=== PATIENT | male | born 1950 | race Caucasian/White ===

== ENCOUNTER → 2022-06-08 10:36 | Outpatient (BNVA) | payer MEDICARE, SELFPAY | PROVIDERS: Family Provider Family Medicine; PCP Family Medicine; Visit Provider Family Medicine | DX: E78.2 Mixed hyperlipidemia (principal); Z12.5 Encounter for screening for malignant neoplasm of prostate; G47.00 Insomnia, unspecified; J30.9 Allergic rhinitis, unspecified | CPT/HCPCS: 80053; 80061; 85025; G0103 ==

== ENCOUNTER → 2023-03-14 13:02 | Outpatient (BNVA) | payer OTHER, SELFPAY | PROVIDERS: Family Provider Family Medicine; PCP Family Medicine; Visit Provider Registered Nurse Neonatal Intensive Care | DX: J02.9 Acute pharyngitis, unspecified (principal); Z23 Encounter for immunization | CPT/HCPCS: 87071; 87880 ==

== ENCOUNTER → 2023-07-29 12:15 | Outpatient (BNVA) | payer OTHER, SELFPAY | PROVIDERS: Family Provider Family Medicine; PCP Family Medicine; Visit Provider Family Medicine | DX: Z13.6 Encounter for screening for cardiovascular disorders (principal); Z12.5 Encounter for screening for malignant neoplasm of prostate | CPT/HCPCS: 80053; 80061; 85025; G0103 ==

== ENCOUNTER → 2024-06-26 14:08 | Outpatient (BNVA) | payer OTHER, SELFPAY | PROVIDERS: Family Provider Family Medicine; PCP Family Medicine; Visit Provider Family Medicine | DX: F51.04 Psychophysiologic insomnia (principal); R97.20 Elevated prostate specific antigen [PSA]; R25.2 Cramp and spasm; Z12.5 Encounter for screening for malignant neoplasm of prostate | CPT/HCPCS: 80053; 80061; 84443; 85025; G0103 ==